=== PATIENT | male | born 1965 | race Caucasian/White ===

== ENCOUNTER 2024-02-18 08:34 | Emergency (ER) | payer OTHER ==
[~2024-02-18] VITALS: Ht 177.8 cm; Wt 91.0 kg
[2024-02-18 08:44] VITALS: TEMP 98.2; O2SAT 98
[2024-02-18 10:16] VITALS: BP 146/111; PULSE 65; RESP 18
[2024-02-18] MEDS: MORPHINE SULFATE 4 MG/ML INJ (FOR IV/IM USE) IM ONE (10:16)
[2024-02-18] MEDS: CEFAZOLIN SODIUM 1000MG/VIAL IM ONE (10:28)
[2024-02-18] MEDS ORDERED: CEFP100T8 MT (11:13)
[2024-02-18] MEDS: LIDOCAINE HCL 1% 20ML VIAL INFIL NR (11:38)
[2024-02-18] MEDS: CEFTRIAXONE SODIUM 1G VIAL IM NR (11:38)
== END 2024-02-18 11:40 | disposition home or self-care (01) ==
LOC: ER 08:34
DX: S62.600A Fracture of unspecified phalanx of right index finger, initial encounter for closed fracture (principal); X58.XXXA Exposure to other specified factors, initial encounter; Y93.89 Activity, other specified; Y92.89 Other specified places as the place of occurrence of the external cause; Y99.8 Other external cause status
CPT/HCPCS: 73130; 96372; 99291; J0690; J2270; Z7610 ×4